=== PATIENT | female | born 1965 | race Caucasian/White ===

== ENCOUNTER 2020-05-02 07:03 | Outpatient (REF) | payer OTHER, SELFPAY ==
[2020-05-02 11:36] LABS: Estimated Average Glucose 189 mg/dL; Hemoglobin A1c % 8.2 %
[2020-05-02 11:50] LABS: Alanine Aminotransferase 23 U/L (0-31); Albumin Level 4.1 g/dL (3.5-5.0); Alkaline Phosphatase 83 U/L (39-117); Anion Gap 13 (12-20); Aspartate Amino Transferase 22 U/L (5-31); Bilirubin Total 0.9 mg/dL (0.0-1.0); Blood Urea Nitrogen 9 mg/dL (9-16); Calcium 8.4 mg/dL (8.4-10.2); Carbon Dioxide 28 mmol/L (22-29); Chloride 102 mmol/L (96-108); Estimated Glomerular Filt Rate > 60; Glucose Fasting 137 mg/dL (60-99); Potassium 4.5 mmol/l (3.3-5.1); Sodium 138 mmol/L (135-145)
[2020-05-02 11:55] LABS: Creatinine Urine 151.02 mg/dL; Microalbum/Creatinine Ratio Ur 45.6 ug/mg cr
== END 2020-05-02 07:04 | disposition home or self-care (01) ==
LOC: HO.HMGCLDS 07:03
PROVIDERS: PCP Internal Medicine; Visit Provider Internal Medicine
DX: Z00.00 Encounter for general adult medical examination without abnormal findings (principal); E11.29 Type 2 diabetes mellitus with other diabetic kidney complication; Z72.0 Tobacco use
CPT/HCPCS: 80053; 82043; 83036

== ENCOUNTER 2020-08-14 07:14 | Outpatient (REF) | payer OTHER, SELFPAY ==
[2020-08-14 11:31] LABS: Hematocrit 45.2 % (37-47); Hemoglobin 14.4 g/dl (12.0-16.0); Mean Corpuscular HGB Conc 31.9 g/dl (31.0-35.0); Mean Corpuscular Hemoglobin 29.8 pg (27.0-33.0); Mean Corpuscular Volume 93.6 fL (80-98); Mean Platelet Volume 11.1 fL (9.4-12.3); Platelet Count 193 X10*3/uL (160-400); Red Blood Count 4.83 X10*6/uL (4.20-5.50); Red Cell Distribution Width 13.2 % (11.0-16.0); White Blood Count 7.3 X10*3/uL (4.8-10.8)
[2020-08-14 11:32] LABS: Estimated Average Glucose 203 mg/dL; Hemoglobin A1c % 8.7 %
[2020-08-14 11:44] LABS: Alanine Aminotransferase 26 U/L (0-31); Alkaline Phosphatase 96 U/L (39-117); Anion Gap 13 (12-20); Aspartate Amino Transferase 27 U/L (5-31); Bilirubin Total 0.7 mg/dL (0.0-1.0); Blood Urea Nitrogen 8 mg/dL (9-16); Calcium 8.5 mg/dL (8.4-10.2); Carbon Dioxide 27 mmol/L (22-29); Chloride 103 mmol/L (96-108); Cholesterol 149 mg/dL; Estimated Glomerular Filt Rate > 60; Glucose Fasting 120 mg/dL (60-99); HDL Cholesterol 30 mg/dL; LDL Cholesterol Calculated 95 mg/dl; Potassium 4.3 mmol/l (3.3-5.1); Sodium 139 mmol/L (135-145); Triglycerides 120 mg/dL
[2020-08-14 11:59] LABS: Microalbum/Creatinine Ratio Ur 57.2 ug/mg cr
[2020-08-14 12:05] LABS: TSH reflex Free T4 1.67 mIU/mL (0.32-4.0)
== END 2020-08-14 07:15 | disposition home or self-care (01) ==
LOC: HO.HMGCLDS 07:14
PROVIDERS: PCP Internal Medicine; Visit Provider Internal Medicine
DX: E11.9 Type 2 diabetes mellitus without complications (principal); I10 Essential (primary) hypertension; E78.5 Hyperlipidemia, unspecified
CPT/HCPCS: 36415; 80053; 80061; 82043; 83036; 84443; 85027

== ENCOUNTER 2020-08-20 16:31 | Outpatient (REF) | payer OTHER, SELFPAY | END 2020-08-20 16:32 | disposition home or self-care (01) | LOC: HO.LNP 16:31 | PROVIDERS: Visit Provider Internal Medicine | DX: R30.0 Dysuria (principal) | CPT/HCPCS: 87086; 87088; 87186 ==

== ENCOUNTER 2020-11-20 06:24 | Outpatient (REF) | payer OTHER, SELFPAY ==
[2020-11-20 11:51] LABS: Hemoglobin 14.2 g/dl (12.0-16.0); Mean Corpuscular HGB Conc 31.6 g/dl (31.0-35.0); Mean Corpuscular Hemoglobin 29.8 pg (27.0-33.0); Mean Corpuscular Volume 94.3 fL (80-98); Mean Platelet Volume 11.5 fL (9.4-12.3); Platelet Count 191 X10*3/uL (160-400); Red Blood Count 4.77 X10*6/uL (4.20-5.50); Red Cell Distribution Width 13.1 % (11.0-16.0)
[2020-11-20 12:05] LABS: Alanine Aminotransferase 27 U/L (0-31); Albumin Level 4.2 g/dL (3.5-5.0); Alkaline Phosphatase 98 U/L (39-117); Anion Gap 15 (12-20); Aspartate Amino Transferase 24 U/L (5-31); Bilirubin Total 0.8 mg/dL (0.0-1.0); Blood Urea Nitrogen 8 mg/dL (9-16); Calcium 8.7 mg/dL (8.4-10.2); Carbon Dioxide 25 mmol/L (22-29); Chloride 106 mmol/L (96-108); Cholesterol 149 mg/dL; Estimated Glomerular Filt Rate > 60; Glucose Fasting 149 mg/dL (60-99); HDL Cholesterol 29 mg/dL; LDL Cholesterol Calculated 93 mg/dl; Potassium 4.4 mmol/L (3.3-5.1); Sodium 142 mmol/L (135-145); Total Protein 7.2 g/dL (6.5-8.0); Triglycerides 138 mg/dL
[2020-11-20 12:34] LABS: Creatinine Urine 108.82 mg/dL; Microalbum/Creatinine Ratio Ur 70.7 ug/mg cr
[2020-11-20 12:36] LABS: Estimated Average Glucose 223 mg/dL; Hemoglobin A1c % 9.4 %
== END 2020-11-20 06:25 | disposition home or self-care (01) ==
LOC: HO.HMGCLDS 06:24
PROVIDERS: PCP Internal Medicine; Visit Provider Internal Medicine
DX: E11.9 Type 2 diabetes mellitus without complications (principal); E78.5 Hyperlipidemia, unspecified; I10 Essential (primary) hypertension
CPT/HCPCS: 36415; 80053; 80061; 82043; 83036; 85027

== ENCOUNTER 2020-11-26 14:04 | Outpatient (REF) | payer OTHER, SELFPAY ==
[2020-11-26 14:33] LABS: Glucose Urine UA >=1000 MG/DL (NEG); Leukocyte Esterase Urine NEG (NEG); Nitrite Urine NEG (NEG); PH 6.5 (5.0-8.0); Urine Blood NEG (NEG); Urine Ketones NEG (NEG); Urine Protein NEG (NEG-TRACE)
[2020-11-26 14:38] LABS: Appearance Urine CLEAR; Color Urine YELLOW
[2020-11-26 15:01] LABS: RBC Urine 0 /HPF (0); Squamous Epithelial Cell Urine 1+ /LPF; WBC Urine 30-49 /HPF (0-4)
== END 2020-11-26 14:05 | disposition home or self-care (01) ==
LOC: HO.LNP 14:04
PROVIDERS: Visit Provider Internal Medicine
DX: E11.9 Type 2 diabetes mellitus without complications (principal); E78.5 Hyperlipidemia, unspecified; I10 Essential (primary) hypertension
CPT/HCPCS: 81001

== ENCOUNTER 2021-04-11 06:37 | Outpatient (REF) | payer OTHER, SELFPAY ==
[2021-04-11 11:58] LABS: Alanine Aminotransferase 24 U/L (0-31); Albumin Level 4.1 g/dL (3.5-5.0); Alkaline Phosphatase 96 U/L (39-117); Anion Gap 14 (12-20); Aspartate Amino Transferase 20 U/L (5-31); Blood Urea Nitrogen 9 mg/dL (9-16); Calcium 8.6 mg/dL (8.4-10.2); Carbon Dioxide 26 mmol/L (22-29); Chloride 105 mmol/L (96-108); Cholesterol 156 mg/dL; Estimated Glomerular Filt Rate > 60; Glucose Fasting 120 mg/dL (60-99); HDL Cholesterol 31 mg/dL; LDL Cholesterol Calculated 88 mg/dl; Potassium 4.5 mmol/L (3.3-5.1); Sodium 140 mmol/L (135-145); Total Protein 6.8 g/dL (6.5-8.0); Triglycerides 186 mg/dL
[2021-04-11 12:57] LABS: Creatinine Urine 158.97 mg/dL; Microalbum/Creatinine Ratio Ur 27.6 ug/mg cr
[2021-04-12 07:22] LABS: Estimated Average Glucose 180 mg/dL; Hemoglobin A1c % 7.9 %
== END 2021-04-11 06:38 | disposition home or self-care (01) ==
LOC: HO.HMGCLDS 06:37
PROVIDERS: PCP Internal Medicine; Visit Provider Internal Medicine
DX: E11.9 Type 2 diabetes mellitus without complications (principal); I10 Essential (primary) hypertension; E78.5 Hyperlipidemia, unspecified
CPT/HCPCS: 36415; 80053; 80061; 82043; 83036

== ENCOUNTER 2022-01-14 06:41 | Outpatient (REF) | payer OTHER, SELFPAY ==
[2022-01-14 11:51] LABS: Alanine Aminotransferase 23 U/L (0-31); Albumin Level 3.8 g/dL (3.5-5.0); Alkaline Phosphatase 84 U/L (39-117); Anion Gap 10 (12-20); Aspartate Amino Transferase 27 U/L (5-31); Bilirubin Total 0.8 mg/dL (0.0-1.0); Blood Urea Nitrogen 11 mg/dL (9-16); Calcium 8.6 mg/dL (8.4-10.2); Carbon Dioxide 26 mmol/L (22-29); Chloride 107 mmol/L (96-108); Cholesterol 154 mg/dL; Estimated Average Glucose 194 mg/dL; Estimated Glomerular Filt Rate > 60; Glucose Fasting 106 mg/dL (60-99); HDL Cholesterol 29 mg/dL; Hemoglobin A1c % 8.4 %; LDL Cholesterol Calculated 100 mg/dl; Potassium 4.4 mmol/L (3.3-5.1); Sodium 139 mmol/L (135-145); Total Protein 6.6 g/dL (6.5-8.0); Triglycerides 129 mg/dL
== END 2022-01-14 06:42 | disposition home or self-care (01) ==
LOC: HO.HMGCLDS 06:41
PROVIDERS: Visit Provider Internal Medicine
DX: E11.9 Type 2 diabetes mellitus without complications (principal); I10 Essential (primary) hypertension; E78.5 Hyperlipidemia, unspecified
CPT/HCPCS: 36415; 80053; 80061; 83036

== ENCOUNTER 2022-09-05 06:30 | Outpatient (REF) | payer OTHER, SELFPAY ==
[2022-09-05 11:20] LABS: Estimated Average Glucose 154 mg/dL
[2022-09-05 11:31] LABS: Alanine Aminotransferase 20 U/L (0-31); Alkaline Phosphatase 75 U/L (39-117); Anion Gap 13 (12-20); Aspartate Amino Transferase 23 U/L (5-31); Bilirubin Total 0.9 mg/dL (0.0-1.0); Blood Urea Nitrogen 9 mg/dL (9-16); Calcium 8.9 mg/dL (8.4-10.2); Carbon Dioxide 27 mmol/L (22-29); Chloride 104 mmol/L (96-108); Cholesterol 156 mg/dL; Estimated Glomerular Filt Rate > 60; Glucose Fasting 76 mg/dL (60-99); HDL Cholesterol 31 mg/dL; LDL Cholesterol Calculated 96 mg/dl; Potassium 4.5 mmol/L (3.3-5.1); Sodium 139 mmol/L (135-145); Total Protein 6.8 g/dL (6.5-8.0); Triglycerides 149 mg/dL
[2022-09-05 11:57] LABS: Creatinine Urine 139.99 mg/dL; Microalbum/Creatinine Ratio Ur 14.2 ug/mg cr
== END 2022-09-05 06:31 | disposition home or self-care (01) ==
LOC: HO.HMGCLDS 06:30
PROVIDERS: PCP Internal Medicine; Visit Provider Internal Medicine
DX: E11.9 Type 2 diabetes mellitus without complications (principal); E78.5 Hyperlipidemia, unspecified; I10 Essential (primary) hypertension
CPT/HCPCS: 36415; 80053; 80061; 82043; 83036

== ENCOUNTER 2022-12-02 06:03 | Outpatient (REF) | payer OTHER, SELFPAY ==
[2022-12-02 11:20] LABS: MANUAL DIFF FLAG NO
[2022-12-02 11:34] LABS: Basophils Percent Auto 0.3 % (0-2); Eosinophils Absolute Auto 0.1 X10*3/uL (0.0-0.4); Eosinophils Percent Auto 1.8 % (0-4); Hematocrit 42.3 % (37.0-47.0); Hemoglobin 13.6 g/dl (12.0-16.0); Imm Gran Abs Auto 0.03 X10*3/uL (0.00-0.03); Imm Gran Pct Auto 0.4 % (0.0-0.4); Lymphocytes Percent Auto 29.8 % (20-40); Mean Corpuscular HGB Conc 32.2 g/dl (31.0-35.0); Mean Corpuscular Hemoglobin 29.8 pg (27.0-33.0); Mean Corpuscular Volume 92.8 fL (80.0-98.0); Monocytes Absolute Auto 0.7 X10*3/uL (0.1-1.2); Monocytes Percent Auto 10.2 % (2-11); Neutrophils Absolute Auto 3.8 x10*3/uL (2.0-8.3); Neutrophils Percent Auto 57.5 % (45-73); Platelet Count 208 X10*3/uL (160-400); Red Blood Count 4.56 X10*6/uL (4.20-5.50); Red Cell Distribution Width 13.2 % (11.0-16.0); White Blood Count 6.7 X10*3/uL (4.8-10.8)
[2022-12-02 11:59] LABS: Estimated Average Glucose 148 mg/dL; Hemoglobin A1c % 6.8 %
[2022-12-02 12:07] LABS: Alanine Aminotransferase 22 U/L (0-31); Albumin Level 3.9 g/dL (3.5-5.0); Alkaline Phosphatase 74 U/L (39-117); Anion Gap 12 (12-20); Aspartate Amino Transferase 19 U/L (5-31); Bilirubin Total 0.9 mg/dL (0.0-1.0); Blood Urea Nitrogen 6 mg/dL (9-16); Calcium 8.8 mg/dL (8.4-10.2); Carbon Dioxide 30 mmol/L (22-29); Chloride 105 mmol/L (96-108); Cholesterol 131 mg/dL; Estimated Glomerular Filt Rate > 60; Glucose Fasting 93 mg/dL (60-99); HDL Cholesterol 30 mg/dL; LDL Cholesterol Calculated 78 mg/dl; Potassium 4.5 mmol/L (3.3-5.1); Sodium 142 mmol/L (135-145); Total Protein 6.5 g/dL (6.5-8.0); Triglycerides 117 mg/dL
== END 2022-12-02 06:04 | disposition home or self-care (01) ==
LOC: HO.HMGCLDS 06:03
PROVIDERS: PCP Internal Medicine; Visit Provider Internal Medicine
DX: E11.9 Type 2 diabetes mellitus without complications (principal); E78.5 Hyperlipidemia, unspecified; J44.9 Chronic obstructive pulmonary disease, unspecified; I10 Essential (primary) hypertension
CPT/HCPCS: 36415; 80053; 80061; 83036; 85025

== ENCOUNTER → 2022-12-17 09:29 | Outpatient (BNVA) | payer OTHER, SELFPAY | PROVIDERS: PCP Internal Medicine; Visit Provider Internal Medicine Endocrinology, Diabetes & Metabolism | DX: E11.9 Type 2 diabetes mellitus without complications (principal) | CPT/HCPCS: 82947; 99202 ==

== ENCOUNTER 2023-06-10 06:12 | Outpatient (REF) | payer OTHER, SELFPAY ==
[2023-06-10 11:12] LABS: MANUAL DIFF FLAG NO
[2023-06-10 11:17] LABS: Basophils Absolute Auto 0.1 X10*3/uL (0.0-0.2); Basophils Percent Auto 0.7 % (0-2); Eosinophils Absolute Auto 0.2 X10*3/uL (0.0-0.4); Eosinophils Percent Auto 2.4 % (0-4); Hematocrit 42.8 % (37.0-47.0); Hemoglobin 13.8 g/dl (12.0-16.0); Imm Gran Abs Auto 0.02 X10*3/uL (0.00-0.03); Imm Gran Pct Auto 0.3 % (0.0-0.4); Lymphocytes Absolute Auto 2.4 X10*3/uL (1.2-4.9); Lymphocytes Percent Auto 34.5 % (20-40); Mean Corpuscular HGB Conc 32.2 g/dl (31.0-35.0); Mean Corpuscular Hemoglobin 29.7 pg (27.0-33.0); Mean Corpuscular Volume 92.2 fL (80.0-98.0); Mean Platelet Volume 11.1 fL (9.4-12.3); Monocytes Absolute Auto 0.8 X10*3/uL (0.1-1.2); Neutrophils Absolute Auto 3.6 x10*3/uL (2.0-8.3); Neutrophils Percent Auto 51.1 % (45-73); Platelet Count 240 X10*3/uL (160-400); Red Blood Count 4.64 X10*6/uL (4.20-5.50); Red Cell Distribution Width 12.8 % (11.0-16.0)
[2023-06-10 11:23] LABS: Estimated Average Glucose 148 mg/dL; Hemoglobin A1c % 6.8 % (<6.0)
[2023-06-10 11:58] LABS: Alanine Aminotransferase 20 U/L (0-31); Alkaline Phosphatase 77 U/L (39-117); Anion Gap 12 (12-20); Aspartate Amino Transferase 19 U/L (5-31); Bilirubin Total 0.7 mg/dL (0.0-1.0); Blood Urea Nitrogen 7 mg/dL (9-16); Calcium 9.2 mg/dL (8.4-10.2); Carbon Dioxide 29 mmol/L (22-29); Chloride 106 mmol/L (96-108); Cholesterol 165 mg/dL (<200); Estimated Glomerular Filt Rate > 60; Glucose Fasting 117 mg/dL (60-99); HDL Cholesterol 30 mg/dL (>40); LDL Cholesterol Calculated 110 mg/dL (<100); Potassium 4.7 mmol/L (3.3-5.1); Sodium 142 mmol/L (135-145); Total Protein 7.2 g/dL (6.5-8.0); Triglycerides 127 mg/dL (<150)
== END 2023-06-10 06:13 | disposition home or self-care (01) ==
LOC: HO.HMGCLDS 06:12
PROVIDERS: PCP Internal Medicine; Visit Provider Internal Medicine
DX: J44.9 Chronic obstructive pulmonary disease, unspecified (principal); E78.5 Hyperlipidemia, unspecified; I10 Essential (primary) hypertension
CPT/HCPCS: 36415; 80053; 80061; 83036; 85025

== ENCOUNTER 2023-06-11 11:26 | Outpatient (AMB) | payer OTHER, SELFPAY ==
--- NOTE | 2023-06-11 11:48 | MHC.PC.OV ---
Vital Signs 06/11/23 11:49 Height 5 ft 5 in Weight 210 lb 4 oz BMI 35.0 BP 132/86 Blood Pressure Location Lt brachial Position Sitting Pulse 94 Pulse Source Pulse Oximeter Pulse Oximetry (%) 95 Oxygen Delivery Method Room Air Intake Visit Reasons: Followup diabetes Allergies empagliflozin [From Jardiance] Adverse Reaction (Intermediate, Verified 06/11/23 11:51) Abdominal Pain Medication List - Last Reconciled 06/11/23 by Capri Lombardo MD albuterol sulfate 90 mcg/actuation (Proventil HFA) 2 puffs inhalation Q6H PRN atorvastatin 40 mg PO DAILY blood-glucose meter (FreeStyle System Kit) As directed; freestyle system kit buprenorphine-naloxone 8-2 mg 3 film sublingual Q OTHER DAY PRN dulaglutide (Trulicity) 4.5 mg (0.5 mL) subcut QWEEK famotidine (Pepcid AC) 20 mg PO BEDTIME fluoxetine 20 mg PO DAILY fluoxetine mg PO FreeStyle Lite Strips (blood sugar diagnostic) test blood sugar twice a day NS gabapentin 100 mg PO TID glipizide ER 20 mg (2 x 10 mg) PO DAILY lamotrigine 25 mg PO DAILY lancets (FreeStyle Lancets) test blood sugar twice a day lisinopril 30 mg PO DAILY lorazepam 1 mg PO DAILY PRN metformin 1,000 mg PO BID umeclidinium-vilanterol 62.5-25 mcg/actuation (Anoro Ellipta) 1 ea inhalation DAILY Tobacco use date assessed: 06/11/23 Dental Screening Dental Screen Date: 06/11/23 Did you have a dental visit in the last 12 months?: No Did you have a dental problem in the last 6 months where you did not have access to dental care?: No Was dental information given to patient?: No HPI Followup diabetes HPI Details Pt presents for f/u DM 2, hyperlipid, HTN, COPD, stable on meds. PFSH Medical History Nicotine dependence, cigarettes, uncomplicated Mammogram declined Colonoscopy refused Mammogram normal Normal Pap smear COPD (chronic obstructive pulmonary disease) Dysuria Lumbar degenerative disc disease Opioid abuse Hepatitis B Hyperlipemia Diabetes HTN (hypertension) Depression Surgical History History of tubal ligation History of hysterectomy H/O colonoscopy History of carpal tunnel release Family History Father Unknown family medical history Mother Depression Anxiety HTN (hypertension) Hyperlipidemia Mental health disorder Brother No problems noted. Sister Mental health disorder Sister No problems noted. Sister No problems noted. Son No problems noted. Son No problems noted. Son No problems noted. Social History Housing: Apartment Alcohol intake: never Patient Tobacco Use Status: Current everyday Tobacco user Tobacco use type: Cigarette Cigarettes Per Day: 6 Years Smoked: 16 years old e-Cigarette/Vaping Use: Never Used Current occupational status: unemployed Cognitive needs: No Hearing needs: No Vision needs: Yes Questionnaire Thrive Questionnaire Date Thrive assessed: 11/21/21 MELLISA-7 AMB Questionnaire MELLISA-7 Date MELLISA - 7 assessed: 11/21/21 Source: Developed by Drs. Addi Britt, Ananya Heard, Madhu Reyes and colleagues, with an educational neftaly from [employer]. Review of Systems Const All systems reviewed & are unremarkable except as noted in HPI and below Reports no additional complaints Eyes Reports no additional complaints ENT Reports no additional complaints Card Reports no additional complaints Resp Reports no additional complaints GI Reports no additional complaints Reports no additional complaints Physical exam (Primary Care) Vital Signs: Last Vital Signs Pulse 94 06/11/23 11:49 BP 132/86 06/11/23 11:49 Pulse Ox 95 06/11/23 11:49 Oxygen Delivery Method Room Air 06/11/23 11:49 BMI result Body Mass Index 35.0 Tobacco/Smoking Status: Tobacco use Status Tobacco use date assessed 06/11/23 06/11/23 11:52 Patient Tobacco Use Status Current everyday Tobacco 06/11/23 11:52 Tobacco use type Cigarette 06/11/23 11:52 e-Cigarette/Vaping Use Never Used 06/11/23 11:52 Thrive Assessment: Date of Thrive Assessment Date Thrive assessed 11/21/21 06/11/23 11:52 Const General: no acute distress HENMT Throat: Yes posterior oropharynx normal Neck Neck: Yes supple Chest Chest palpation & inspection: normal inspection of the chest Resp Effort & Inspection: normal respiratory effort Auscultation: wheezes and diminished lung sounds Cardio Rhythm: regular rhythm Heart sounds: S1 normal heart sound present and S2 normal heart sound present GI Inspection: Yes normal to inspection Palpation (GI): Soft to palpation Percussion: Yes normal to percussion Auscultation: normal bowel sounds Assessment and Plan Assessment & Plan (1) Diabetes: Comment: A1C less than 7.5 Code(s): E11.9 - Type 2 diabetes mellitus without complications Plan: A1C is 6.8, ADA diet, exercise, weight loss discussed, cont med and f/u in 4 month (2) HTN (hypertension): Comment: BP less than 130/80 Code(s): I10 - Essential (primary) hypertension Plan: cont meds (3) Hyperlipemia: Code(s): E78.5 - Hyperlipidemia, unspecified Plan: cont statin (4) COPD (chronic obstructive pulmonary disease): Code(s): J44.9 - Chronic obstructive pulmonary disease, unspecified Plan: Pt has persistant wheezing, will change Anoro to Trelegy 100, f/u 4 months (5) Depression: Comment: f/u with psychiatry Code(s): F32.9 - Major depressive disorder, single episode, unspecified Orders: Orders Comprehensive [place]. Panel Fast 4 Months E11.9 - Type 2 diabetes mellitus without complications, E78.5 - Hyperlipidemia, unspecified, I10 - Essential (primary) hypertension, J44.9 - Chronic obstructive pulmonary disease, unspecified Lipid Panel 4 Months E11.9 - Type 2 diabetes mellitus without complications, E78.5 - Hyperlipidemia, unspecified, I10 - Essential (primary) hypertension, J44.9 - Chronic obstructive pulmonary disease, unspecified Complete Blood Count Auto Diff 4 Months E11.9 - Type 2 diabetes mellitus without complications, E78.5 - Hyperlipidemia, unspecified, I10 - Essential (primary) hypertension, J44.9 - Chronic obstructive pulmonary disease, unspecified Hemoglobin A1c 4 Months E11.9 - Type 2 diabetes mellitus without complications, E78.5 - Hyperlipidemia, unspecified, I10 - Essential (primary) hypertension, J44.9 - Chronic obstructive pulmonary disease, unspecified TSH reflex Free T4 4 Months E11.9 - Type 2 diabetes mellitus without complications, E78.5 - Hyperlipidemia, unspecified, I10 - Essential (primary) hypertension, J44.9 - Chronic obstructive pulmonary disease, unspecified Medications: New xbrpbqvxffy-auyhsytcf-ybbcsliv 100-62.5-25 mcg (Trelegy Ellipta) 1 inh inhalation DAILY 180 ea 3RF Coding Level of Care Code Est Pt Level 4 (96246) Diagnoses Diabetes E11.9 HTN (hypertension) I10 Hyperlipemia E78.5 COPD (chronic obstructive pulmonary disease) J44.9 Depression F32.9
[2023-06-11 11:49] VITALS: BP 132/86; PULSE 94; O2SAT 95; BMI 35.0
== END 2023-06-11 12:19 | disposition home or self-care (01) ==
PROVIDERS: PCP Internal Medicine; Visit Provider Internal Medicine
DX: E11.9 Type 2 diabetes mellitus without complications (principal); J44.9 Chronic obstructive pulmonary disease, unspecified; I10 Essential (primary) hypertension; E78.5 Hyperlipidemia, unspecified; F32.9 Major depressive disorder, single episode, unspecified; F17.210 Nicotine dependence, cigarettes, uncomplicated
CPT/HCPCS: 99214

== ENCOUNTER 2023-10-26 06:09 | Outpatient (REF) | payer OTHER, SELFPAY ==
[2023-10-26 12:46] LABS: MANUAL DIFF FLAG NO
[2023-10-26 12:52] LABS: Basophils Percent Auto 0.6 % (0-2); Eosinophils Absolute Auto 0.2 X10*3/uL (0.0-0.4); Eosinophils Percent Auto 2.5 % (0-4); Hematocrit 41.9 % (37.0-47.0); Hemoglobin 13.3 g/dl (12.0-16.0); Imm Gran Abs Auto 0.02 X10*3/uL (0.00-0.03); Imm Gran Pct Auto 0.3 % (0.0-0.4); Lymphocytes Absolute Auto 2.2 X10*3/uL (1.2-4.9); Lymphocytes Percent Auto 34.7 % (20-40); Mean Corpuscular HGB Conc 31.7 g/dl (31.0-35.0); Mean Corpuscular Hemoglobin 28.9 pg (27.0-33.0); Mean Corpuscular Volume 91.1 fL (80.0-98.0); Mean Platelet Volume 10.5 fL (9.4-12.3); Monocytes Absolute Auto 0.7 X10*3/uL (0.1-1.2); Monocytes Percent Auto 10.5 % (2-11); Neutrophils Absolute Auto 3.3 x10*3/uL (2.0-8.3); Neutrophils Percent Auto 51.4 % (45-73); Platelet Count 230 X10*3/uL (160-400); Red Cell Distribution Width 12.9 % (11.0-16.0); White Blood Count 6.5 X10*3/uL (4.8-10.8)
[2023-10-26 13:09] LABS: Estimated Average Glucose 140 mg/dL; Hemoglobin A1c % 6.5 % (<6.0)
[2023-10-26 13:14] LABS: Alanine Aminotransferase 16 U/L (0-31); Albumin Level 3.9 g/dL (3.5-5.0); Alkaline Phosphatase 67 U/L (39-117); Anion Gap 12 (12-20); Aspartate Amino Transferase 20 U/L (5-31); Bilirubin Total 0.7 mg/dL (0.0-1.0); Blood Urea Nitrogen 10 mg/dL (9-16); Carbon Dioxide 28 mmol/L (22-29); Chloride 106 mmol/L (96-108); Cholesterol 159 mg/dL (<200); Estimated Glomerular Filt Rate > 60; Glucose Fasting 116 mg/dL (60-99); HDL Cholesterol 30 mg/dL (>40); LDL Cholesterol Calculated 101 mg/dL (<100); Potassium 4.9 mmol/L (3.3-5.1); Sodium 141 mmol/L (135-145); Total Protein 6.9 g/dL (6.5-8.0); Triglycerides 144 mg/dL (<150)
[2023-10-26 13:33] LABS: TSH reflex Free T4 1.62 uIU/mL (0.32-4.0)
== END 2023-10-26 06:10 | disposition home or self-care (01) ==
LOC: HO.HMGCLDS 06:09
PROVIDERS: PCP Internal Medicine; Visit Provider Internal Medicine
DX: E11.9 Type 2 diabetes mellitus without complications (principal); I10 Essential (primary) hypertension; E78.5 Hyperlipidemia, unspecified; J44.9 Chronic obstructive pulmonary disease, unspecified
CPT/HCPCS: 36415; 80053; 80061; 83036; 84443; 85025

== ENCOUNTER 2023-11-25 12:22 | Outpatient (AMB) | payer OTHER, SELFPAY ==
[2023-11-25 12:25] VITALS: BP 132/78; PULSE 82; O2SAT 95; BMI 35.1
--- NOTE | 2023-11-25 12:25 | MHC.PC.OV ---
Vital Signs 11/25/23 12:25 Height 5 ft 5 in Weight 211 lb BMI 35.1 BP 132/78 Blood Pressure Location Lt brachial Position Sitting Pulse 82 Pulse Source Pulse Oximeter Pulse Oximetry (%) 95 Oxygen Delivery Method Room Air Intake Visit Reasons: Rescheduling October 27 appointment Intake Note: Pt is here today for a follow up visit on labs. Allergies empagliflozin [From Jardiance] Adverse Reaction (Intermediate, Verified 11/25/23 12:27) Abdominal Pain Medication List - Last Reconciled 11/25/23 by Capri Lombardo MD albuterol sulfate 90 mcg/actuation (Proventil HFA) 2 puffs inhalation Q6H PRN atorvastatin 40 mg PO DAILY blood-glucose meter (FreeStyle System Kit) As directed; freestyle system kit buprenorphine-naloxone 8-2 mg 3 film sublingual Q OTHER DAY PRN dulaglutide (Trulicity) 4.5 mg (0.5 mL) subcut QWEEK famotidine (Pepcid AC) 20 mg PO BEDTIME fluoxetine 20 mg PO DAILY fluoxetine mg PO lcjclyvkfjd-mpsjvbcyx-lzxlwhfj 100-62.5-25 mcg (Trelegy Ellipta) 1 inh inhalation DAILY FreeStyle Lite Strips (blood sugar diagnostic) test blood sugar twice a day NS gabapentin 100 mg PO TID glipizide ER 20 mg (2 x 10 mg) PO DAILY lamotrigine 25 mg PO DAILY lancets (FreeStyle Lancets) test blood sugar twice a day lisinopril 30 mg PO DAILY lorazepam 1 mg PO DAILY PRN metformin 1,000 mg PO BID umeclidinium-vilanterol 62.5-25 mcg/actuation (Anoro Ellipta) 1 ea inhalation DAILY Tobacco use date assessed: 11/25/23 Dental Screening Dental Screen Date: 11/25/23 Did you have a dental visit in the last 12 months?: No Did you have a dental problem in the last 6 months where you did not have access to dental care?: No Was dental information given to patient?: Patient declined HPI Rescheduling October 27 appointment HPI Details Patient presents for the follow-up of type 2 diabetes hypertension hyperlipidemia COPD controlled on current medications [facility] Medical History (Updated 11/25/23 @ 14:18 by Capri Lombardo MD) Nicotine dependence, cigarettes, uncomplicated Mammogram declined Colonoscopy refused Mammogram normal Normal Pap smear COPD (chronic obstructive pulmonary disease) Dysuria Lumbar degenerative disc disease Opioid abuse Hepatitis B Hyperlipemia Diabetes HTN (hypertension) Depression Surgical History History of tubal ligation History of hysterectomy H/O colonoscopy History of carpal tunnel release Family History Father Unknown family medical history Mother Depression Anxiety HTN (hypertension) Hyperlipidemia Mental health disorder Brother No problems noted. Sister Mental health disorder Sister No problems noted. Sister No problems noted. Son No problems noted. Son No problems noted. Son No problems noted. Social History Housing: Apartment Alcohol intake: never Patient Tobacco Use Status: Current everyday Tobacco user Tobacco use type: Cigarette Cigarettes Per Day: 6 Years Smoked: 16 years old e-Cigarette/Vaping Use: Never Used service: No Current occupational status: unemployed Cognitive needs: No Hearing needs: No Vision needs: Yes Questionnaire PHQ-9 Over the last 2 weeks, how often have you been bothered by any of the following problems? 1. Little interest or pleasure in doing things: more than half the days 2. Feeling down, depressed, or hopeless: several days 3. Trouble falling or staying asleep, or sleeping too much: nearly every day 4. Feeling tired or having little energy: nearly every day 5. Poor appetite or overeating: not at all 6. Feeling bad about yourself - or that you are a failure or have let yourself or your family down: several days 7. Trouble concentrating on things, such as reading the newspaper or watching television: several days 8. Moving or speaking so slowly that other people could have noticed. Or the opposite - being so fidgety or restless that you have been moving around a lot more than usual: several days 9. Thoughts that you would be better off or of hurting yourself in some way: several days Total score: 13 Depression Screening Interpretation: Positive (Patient is established with a psychiatrist and a therapist) Depression Screening Follow-up: Existing condition and In treatment Depression Screening Done: Yes Source: Developed by Drs. Addi Britt, Ananya BMadhu Diez and colleagues, with an educational neftaly from [employer]. Thrive Questionnaire Date Thrive assessed: 11/25/23 I am a: Patient What is your living situation today?: I have a steady place to live Within the past 12 months, did the food you bought not last and you didn't have the money to get more?: Sometimes True Within the past 12 months, did you worry whether your food would run out before you got money to buy more?: Sometimes True Do you have trouble paying for medicines?: No Do you have trouble getting transportation to medical appointments?: No Do you have trouble paying your heating and electricity bill?: Yes Do you have trouble taking care of your child, family member or friend?: No Do you have trouble with day-to-day activities such as bathing, preparing meals, shopping, managing finances, etc.?: Yes Are you currently unemployed and looking for a job?: No Are you interested in more education?: No THRIVE Score: 3 AUDIT C Alcohol Use Questionnaire (AUDIT-C) 1. How often do you have a drink containing alcohol?: Never 3. How often do you have six or more drinks on one occasion?: Never Total Score: 0 MELLISA-7 AMB Questionnaire MELLISA-7 Date MELLISA - 7 assessed: 11/25/23 Feeling nervous, anxious, or on edge: 2 = More than half the days Not being able to stop or control worryin = Nearly every day Worrying too much about different things: 3 = Nearly every day Trouble relaxin = Nearly every day Being so restless that it is hard to sit still: 2 = More than half the days Becoming easily annoyed or irritable: 2 = More than half the days Feeling afraid as if something awful might happen: 2 = More than half the days Total MELLISA-7 score (0-4 normal; 5-9 mild; 10-14 moderate; 15-21 severe): 17 Source: Developed by Drs. Addi Britt, Madhu Reyna and colleagues, with an educational neftaly from [employer]. Review of Systems Const All systems reviewed & are unremarkable except as noted in HPI and below Eyes Reports no additional complaints ENT Reports no additional complaints Card Reports no additional complaints Resp Reports no additional complaints GI Reports no additional complaints Reports no additional complaints Physical exam (Primary Care) Vital Signs: Last Vital Signs Pulse 82 11/25/23 12:25 BP 132/78 11/25/23 12:25 Pulse Ox 95 11/25/23 12:25 Oxygen Delivery Method Room Air 11/25/23 12:25 BMI result Body Mass Index 35.1 Tobacco/Smoking Status: Tobacco use Status Tobacco use date assessed 11/25/23 11/25/23 12:31 Patient Tobacco Use Status Current everyday Tobacco 11/25/23 12:27 Tobacco use type Cigarette 11/25/23 12:27 e-Cigarette/Vaping Use Never Used 11/25/23 12:27 PHQ-9: PHQ-9 Score PHQ-9: Total score 13 11/25/23 13:12 Depression Screening Interpretation: Positive (Patient is established with a psychiatrist and a therapist) Depression Screening Follow-up: Existing condition and In treatment Thrive Assessment: Date of Thrive Assessment Date Thrive assessed 11/25/23 11/25/23 13:12 Const General: no acute distress HENMT Face and sinus: Yes normal facial exam Eyes General: appearance normal, both eyes and all related structures Neck Neck: Yes no lymphadenopathy and Yes supple Resp Effort & Inspection: normal respiratory effort Auscultation: clear to auscultation bilaterally Cardio Rhythm: regular rhythm Heart sounds: S1 normal heart sound present and S2 normal heart sound present GI Inspection: Yes normal to inspection Palpation (GI): Soft to palpation Percussion: Yes normal to percussion Auscultation: normal bowel sounds Assessment and Plan Assessment & Plan (1) Diabetes: Comment: A1C less than 7.5 Code(s): E11.9 - Type 2 diabetes mellitus without complications Plan: A1c 6.5. cont ADA, regular exercise, weight lost, continue current medications and follow-up in 6 months (2) HTN (hypertension): Comment: BP less than 130/80 Code(s): I10 - Essential (primary) hypertension Plan: Continue current medications (3) Hyperlipemia: Code(s): E78.5 - Hyperlipidemia, unspecified Plan: Continue statin (4) COPD (chronic obstructive pulmonary disease): Code(s): J44.9 - Chronic obstructive pulmonary disease, unspecified Plan: Continue Trelegy (5) Nicotine dependence, cigarettes, uncomplicated: Comment: In lung cancer screening program, trying to quit Code(s): F17.210 - Nicotine dependence, cigarettes, uncomplicated Plan: Tobacco quitting discussed with the patient (6) Depression: Comment: f/u with psychiatry Code(s): F32.9 - Major depressive disorder, single episode, unspecified Plan: Continue current medications follow-up with Psychiatry Orders: Orders Comprehensive [place]. Panel Fast 6 Months Lipid Panel 6 Months Hemoglobin A1c 6 Months Complete Blood Count Auto Diff 6 Months Microalbumin, Random (w Creat) 6 Months Medications: Refilled dulaglutide (Trulicity) 4.5 mg (0.5 mL) subcut QWEEK 6 mL 3RF qdcndrzghlv-uefdgydli-ubjuhzzn 100-62.5-25 mcg (Trelegy Ellipta) 1 inh inhalation DAILY 180 ea 3RF Coding Level of Care Code Est Pt Level 4 (09554) Diagnoses Diabetes E11.9 HTN (hypertension) I10 Hyperlipemia E78.5 COPD (chronic obstructive pulmonary disease) J44.9 Nicotine dependence, cigarettes, uncomplicated F17.210 Depression F32.9
== END 2023-11-25 13:13 | disposition home or self-care (01) ==
PROVIDERS: PCP Internal Medicine; Visit Provider Internal Medicine
DX: E11.69 Type 2 diabetes mellitus with other specified complication (principal); J44.9 Chronic obstructive pulmonary disease, unspecified; I10 Essential (primary) hypertension; E78.5 Hyperlipidemia, unspecified; F17.210 Nicotine dependence, cigarettes, uncomplicated; F32.9 Major depressive disorder, single episode, unspecified
CPT/HCPCS: 99214

== ENCOUNTER 2024-06-13 06:24 | Outpatient (REF) | payer OTHER, SELFPAY ==
[2024-06-13 10:07] LABS: MANUAL DIFF FLAG NO
[2024-06-13 10:20] LABS: Basophils Percent Auto 0.5 % (0-2); Eosinophils Absolute Auto 0.2 X10*3/uL (0.0-0.4); Eosinophils Percent Auto 3.4 % (0-4); Hematocrit 42.1 % (37.0-47.0); Imm Gran Abs Auto 0.02 X10*3/uL (0.00-0.03); Imm Gran Pct Auto 0.4 % (0.0-0.4); Lymphocytes Absolute Auto 1.9 X10*3/uL (1.2-4.9); Lymphocytes Percent Auto 34.3 % (20-40); Mean Corpuscular HGB Conc 33.3 g/dl (31.0-35.0); Mean Corpuscular Hemoglobin 29.7 pg (27.0-33.0); Mean Corpuscular Volume 89.2 fL (80.0-98.0); Mean Platelet Volume 10.6 fL (9.4-12.3); Monocytes Absolute Auto 0.6 X10*3/uL (0.1-1.2); Monocytes Percent Auto 10.9 % (2-11); Neutrophils Absolute Auto 2.8 x10*3/uL (2.0-8.3); Neutrophils Percent Auto 50.5 % (45-73); Platelet Count 228 X10*3/uL (160-400); Red Blood Count 4.72 X10*6/uL (4.20-5.50); Red Cell Distribution Width 12.9 % (11.0-16.0); White Blood Count 5.6 X10*3/uL (4.8-10.8)
[2024-06-13 10:23] LABS: Estimated Average Glucose 163 mg/dL; Hemoglobin A1C 201.5077 umol/L; Hemoglobin A1c % 7.3 % (<6.0); Total Hemoglobin (HGBA1C) 3605.3206 umol/L
[2024-06-13 11:03] LABS: Alanine Aminotransferase 27 U/L (0-31); Albumin Level 3.9 g/dL (3.5-5.0); Alkaline Phosphatase 97 U/L (39-117); Anion Gap 8 (12-20); Aspartate Amino Transferase 30 U/L (5-31); Bilirubin Total 0.8 mg/dL (0.0-1.0); Blood Urea Nitrogen 6 mg/dL (9-16); Calcium 8.5 mg/dL (8.4-10.2); Carbon Dioxide 30 mmol/L (22-29); Chloride 106 mmol/L (96-108); Cholesterol 133 mg/dL (<200); Estimated Glomerular Filt Rate > 60; Glucose Fasting 101 mg/dL (60-99); HDL Cholesterol 26 mg/dL (>40); LDL Cholesterol Calculated 77 mg/dL (<100); Potassium 4.7 mmol/L (3.3-5.1); Sodium 139 mmol/L (135-145); Total Protein 7.1 g/dL (6.5-8.0); Triglycerides 151 mg/dL (<150)
[2024-06-13 11:37] LABS: Creatinine Urine 208.07 mg/dL; Microalbum/Creatinine Ratio Ur 33.6 ug/mg cr (<30)
== END 2024-06-13 06:25 | disposition home or self-care (01) ==
LOC: HO.HMGCLDS 06:24
PROVIDERS: PCP Internal Medicine; Visit Provider Internal Medicine
DX: Z13.89 Encounter for screening for other disorder (principal)
CPT/HCPCS: 36415; 80053; 80061; 82043; 82570; 83036; 85025

== ENCOUNTER 2024-06-15 12:21 | Outpatient (AMB) | payer OTHER, SELFPAY ==
--- NOTE | 2024-06-15 12:35 | MHC.PC.OV ---
Vital Signs 06/15/24 12:36 Height 5 ft 5 in Weight 209 lb BMI 34.8 BP 122/70 Blood Pressure Location Lt brachial Position Sitting Pulse 94 Pulse Source Pulse Oximeter Pulse Oximetry (%) 96 Oxygen Delivery Method Room Air Intake Visit Reasons: Follow up Allergies empagliflozin [From Jardiance] Adverse Reaction (Intermediate, Verified 06/15/24 12:36) Abdominal Pain Medication List - Last Reconciled 06/15/24 by Capri Lombardo MD albuterol sulfate 90 mcg/actuation (Proventil HFA) 2 puffs inhalation Q6H PRN atorvastatin 40 mg PO DAILY blood-glucose meter (FreeStyle System Kit) As directed; freestyle system kit buprenorphine-naloxone 8-2 mg 3 film sublingual Q OTHER DAY PRN dulaglutide (Trulicity) 4.5 mg (0.5 mL) subcut QWEEK famotidine (Pepcid AC) 20 mg PO BEDTIME fluoxetine 20 mg PO DAILY fluoxetine mg PO aaldiyngnkd-mhdjeurkl-pywjprry 100-62.5-25 mcg (Trelegy Ellipta) 1 inh inhalation DAILY FreeStyle Lite Strips (blood sugar diagnostic) test blood sugar twice a day NS gabapentin 100 mg PO TID glipizide ER 20 mg (2 x 10 mg) PO DAILY lamotrigine 25 mg PO DAILY lancets (FreeStyle Lancets) test blood sugar twice a day lisinopril 30 mg PO DAILY lorazepam 1 mg PO DAILY PRN metformin 1,000 mg PO BID umeclidinium-vilanterol 62.5-25 mcg/actuation (Anoro Ellipta) 1 ea inhalation DAILY Tobacco use date assessed: 06/15/24 Dental Screening Dental Screen Date: 11/25/23 HPI Follow up HPI Details Pt presents for f/u DM2, COPD, hyperlipid. Pt c/o 2 months neck pain and stiffness, worse at the end day. Patient complains of increased urinary frequency and dysuria on and off for 1 week. She denies abdominal pain nausea vomiting fever chills [facility] Medical History (Updated 06/15/24 @ 13:19 by Capri Lombardo MD) Nicotine dependence, cigarettes, uncomplicated Mammogram declined Colonoscopy refused Mammogram normal Normal Pap smear COPD (chronic obstructive pulmonary disease) Dysuria Lumbar degenerative disc disease Opioid abuse Hepatitis B Hyperlipemia Diabetes HTN (hypertension) Depression Surgical History History of tubal ligation History of hysterectomy H/O colonoscopy History of carpal tunnel release Family History Father Unknown family medical history Mother Depression Anxiety HTN (hypertension) Hyperlipidemia Mental health disorder Brother No problems noted. Sister Mental health disorder Sister No problems noted. Sister No problems noted. Son No problems noted. Son No problems noted. Son No problems noted. Social History Housing: Apartment Alcohol intake: never Patient Tobacco Use Status: Current everyday Tobacco user Tobacco use type: Cigarette Cigarettes Per Day: 6 Years Smoked: 16 years old e-Cigarette/Vaping Use: Never Used service: No Current occupational status: unemployed Cognitive needs: No Hearing needs: No Vision needs: Yes Questionnaire PHQ-9 Over the last 2 weeks, how often have you been bothered by any of the following problems? 1. Little interest or pleasure in doing things: several days 2. Feeling down, depressed, or hopeless: not at all 3. Trouble falling or staying asleep, or sleeping too much: nearly every day 4. Feeling tired or having little energy: several days 5. Poor appetite or overeating: nearly every day 6. Feeling bad about yourself - or that you are a failure or have let yourself or your family down: not at all 7. Trouble concentrating on things, such as reading the newspaper or watching television: not at all 8. Moving or speaking so slowly that other people could have noticed. Or the opposite - being so fidgety or restless that you have been moving around a lot more than usual: not at all 9. Thoughts that you would be better off or of hurting yourself in some way: not at all Total score: 8 Depression Screening Interpretation: Negative Depression Screening Done: Yes 50873 - PHQ-9 Billing: Yes Source: Developed by Drs. Addi Britt, Ananya Heard, Madhu Reyes and colleagues, with an educational neftaly from [employer]. Thrive Questionnaire Date Thrive assessed: 11/25/23 I am a: Patient What is your living situation today?: I have a steady place to live Within the past 12 months, did the food you bought not last and you didn't have the money to get more?: Never true Within the past 12 months, did you worry whether your food would run out before you got money to buy more?: Never true Do you have trouble paying for medicines?: Yes Do you have trouble getting transportation to medical appointments?: No Do you have trouble paying your heating and electricity bill?: Yes Do you have trouble taking care of your child, family member or friend?: No Do you have trouble with day-to-day activities such as bathing, preparing meals, shopping, managing finances, etc.?: Yes Are you currently unemployed and looking for a job?: No Are you interested in more education?: No Please select the resources that you would like help with: Utilities Currently or been in a relationship where the following occur: No concerns reported THRIVE Score: 1 MELLISA-7 AMB Questionnaire MELLISA-7 Date MELLISA - 7 assessed: 11/25/23 Source: Developed by Drs. Addi Britt, Ananya Heard, Madhu Reyes and colleagues, with an educational neftaly from [employer]. Review of Systems Const All systems reviewed & are unremarkable except as noted in HPI and below ENT Reports no additional complaints Card Reports no additional complaints Resp Reports no additional complaints GI Reports no additional complaints Reports no additional complaints Physical exam (Primary Care) Vital Signs: Last Vital Signs Pulse 94 06/15/24 12:36 BP 122/70 06/15/24 12:36 Pulse Ox 96 06/15/24 12:36 Oxygen Delivery Method Room Air 06/15/24 12:36 BMI result Body Mass Index 34.8 Tobacco/Smoking Status: Tobacco use Status Tobacco use date assessed 06/15/24 06/15/24 12:50 Patient Tobacco Use Status Current everyday Tobacco 06/15/24 12:35 Tobacco use type Cigarette 06/15/24 12:35 e-Cigarette/Vaping Use Never Used 06/15/24 12:35 PHQ-9: PHQ-9 Score PHQ-9: Total score 8 06/15/24 12:50 Depression Screening Interpretation: Negative Thrive Assessment: Date of Thrive Assessment Date Thrive assessed 11/25/23 06/15/24 12:35 Currently or been in a relationship where the following occur: No concerns reported Const General: no acute distress HENMT Head: Yes normal to inspection Throat: Yes posterior oropharynx normal Neck Neck: Yes supple Resp Effort & Inspection: normal respiratory effort Auscultation: clear to auscultation bilaterally Cardio Rhythm: regular rhythm Heart sounds: S1 normal heart sound present and S2 normal heart sound present GI Inspection: Yes normal to inspection Palpation (GI): Soft to palpation Percussion: Yes normal to percussion Auscultation: normal bowel sounds Back/Spine/Pelvis Other: Paraspinal tenderness and muscle spasm in lower cervical region Coding Level of Care Code Est Pt Level 4 (05666) Complex EM visit Add On G2211 Diagnoses HTN (hypertension) I10 Diabetes E11.9 COPD (chronic obstructive pulmonary disease) J44.9 Dysuria R30.0 Hyperlipemia E78.5 Additional Codes PHQ-9 - 85941 - PHQ-9 Billing: Yes ([id number]) Assessment & Plan Assessment & Plan (1) HTN (hypertension): Comment: BP less than 130/80 Code(s): I10 - Essential (primary) hypertension Category: Medical Plan: Continue current medications (2) Diabetes: Comment: A1C less than 7.5 Code(s): E11.9 - Type 2 diabetes mellitus without complications Category: Medical Plan: A1c is 7.3, ADA diet increase exercise weight loss discussed with the patient. Continue current medications follow-up in 4 months with a fasting labs before (3) COPD (chronic obstructive pulmonary disease): Code(s): J44.9 - Chronic obstructive pulmonary disease, unspecified Category: Medical Plan: Continue Anoro tobacco quitting discussed with the patient (4) Dysuria: Code(s): R30.0 - Dysuria Category: Medical Plan: Check UA and urine culture (5) Hyperlipemia: Code(s): E78.5 - Hyperlipidemia, unspecified Category: Medical Plan: Continue statin Orders: Orders UA w Microscopic Today R30.0 - Dysuria Urine Culture Today R30.0 - Dysuria Comprehensive [place]. Panel Fast 4 Months E11.9 - Type 2 diabetes mellitus without complications, E78.5 - Hyperlipidemia, unspecified, I10 - Essential (primary) hypertension, J44.9 - Chronic obstructive pulmonary disease, unspecified Hemoglobin A1c 4 Months E11.9 - Type 2 diabetes mellitus without complications, E78.5 - Hyperlipidemia, unspecified, I10 - Essential (primary) hypertension, J44.9 - Chronic obstructive pulmonary disease, unspecified Complete Blood Count Auto Diff 4 Months E11.9 - Type 2 diabetes mellitus without complications, E78.5 - Hyperlipidemia, unspecified, I10 - Essential (primary) hypertension, J44.9 - Chronic obstructive pulmonary disease, unspecified Lipid Panel 4 Months E11.9 - Type 2 diabetes mellitus without complications, E78.5 - Hyperlipidemia, unspecified, I10 - Essential (primary) hypertension, J44.9 - Chronic obstructive pulmonary disease, unspecified Microalbumin, Random (w Creat) 4 Months E11.9 - Type 2 diabetes mellitus without complications, E78.5 - Hyperlipidemia, unspecified, I10 - Essential (primary) hypertension, J44.9 - Chronic obstructive pulmonary disease, unspecified
[2024-06-15 12:36] VITALS: BP 122/70; PULSE 94; O2SAT 96; BMI 34.8
== END 2024-06-15 13:21 | disposition home or self-care (01) ==
PROVIDERS: PCP Internal Medicine; Visit Provider Internal Medicine
DX: I10 Essential (primary) hypertension (principal); E11.9 Type 2 diabetes mellitus without complications; J44.9 Chronic obstructive pulmonary disease, unspecified; R30.0 Dysuria; E78.5 Hyperlipidemia, unspecified

== ENCOUNTER 2024-06-15 12:21 | Outpatient (REF) | payer OTHER, SELFPAY ==
[2024-06-15 16:21] LABS: Appearance Urine Turbid; Color Urine Dark Yellow; Glucose Urine UA 500 mg/dL (Negative); Leukocyte Esterase Urine Small (1+) (Negative); Nitrite Urine Positive (Negative); Specific Gravity - Urine 1.025 (1.005-1.025); UMIC TRIGGER UA YES; Urine Blood Negative (Negative); Urine Ketones Trace mg/dL (Negative); Urine Protein Trace mg/dL (Neg-Trace)
[2024-06-15 16:34] LABS: Bacteria Urine 4+ (None Seen); Calcium Oxalate Crystals Urine Present; Hyaline Casts Urine 0-2 /LPF (0-2); RBC Urine 0-2 /HPF (0-2); WBC Urine >50 /HPF (0-5)
== END 2024-06-15 12:22 | disposition home or self-care (01) ==
LOC: HO.HMGCLDS 12:21
PROVIDERS: PCP Internal Medicine; Visit Provider Internal Medicine
DX: R30.0 Dysuria (principal)
CPT/HCPCS: 81001; 87086; 87088; 87186; 96127; 99212

== ENCOUNTER 2024-10-12 06:10 | Outpatient (REF) | payer OTHER, SELFPAY ==
[2024-10-12 10:10] LABS: MANUAL DIFF FLAG NO
[2024-10-12 10:22] LABS: Estimated Average Glucose 174 mg/dL; Hemoglobin A1C 211.4294 umol/L; Hemoglobin A1c % 7.7 % (<6.0); Total Hemoglobin (HGBA1C) 3497.2158 umol/L
[2024-10-12 10:24] LABS: Basophils Absolute Auto 0.1 X10*3/uL (0.0-0.2); Basophils Percent Auto 0.7 % (0-2); Eosinophils Absolute Auto 0.1 X10*3/uL (0.0-0.4); Hematocrit 41.7 % (37.0-47.0); Hemoglobin 13.4 g/dl (12.0-16.0); Imm Gran Abs Auto 0.03 X10*3/uL (0.00-0.03); Imm Gran Pct Auto 0.4 % (0.0-0.4); Lymphocytes Absolute Auto 2.2 X10*3/uL (1.2-4.9); Mean Corpuscular HGB Conc 32.1 g/dl (31.0-35.0); Mean Corpuscular Hemoglobin 28.3 pg (27.0-33.0); Mean Platelet Volume 10.5 fL (9.4-12.3); Monocytes Absolute Auto 0.7 X10*3/uL (0.1-1.2); Monocytes Percent Auto 10.3 % (2-11); Neutrophils Absolute Auto 4.1 x10*3/uL (2.0-8.3); Neutrophils Percent Auto 56.6 % (45-73); Platelet Count 240 X10*3/uL (160-400); Red Blood Count 4.74 X10*6/uL (4.20-5.50); Red Cell Distribution Width 12.9 % (11.0-16.0); White Blood Count 7.2 X10*3/uL (4.8-10.8)
[2024-10-12 10:34] LABS: Alanine Aminotransferase 18 U/L (0-31); Albumin Level 3.8 g/dL (3.5-5.0); Alkaline Phosphatase 86 U/L (39-117); Anion Gap 11 (12-20); Aspartate Amino Transferase 24 U/L (5-31); Blood Urea Nitrogen 10 mg/dL (9-16); Calcium 8.6 mg/dL (8.4-10.2); Carbon Dioxide 24 mmol/L (22-29); Chloride 105 mmol/L (96-108); Cholesterol 155 mg/dL (<200); Estimated Glomerular Filt Rate > 60; Glucose Fasting 130 mg/dL (60-99); HDL Cholesterol 31 mg/dL (>40); LDL Cholesterol Calculated 100 mg/dL (<100); Potassium 4.2 mmol/L (3.3-5.1); Sodium 136 mmol/L (135-145); Total Protein 7.3 g/dL (6.5-8.0); Triglycerides 123 mg/dL (<150)
== END 2024-10-12 06:11 | disposition home or self-care (01) ==
LOC: HO.HMGCLDS 06:10
PROVIDERS: PCP Internal Medicine; Visit Provider Internal Medicine
DX: E11.9 Type 2 diabetes mellitus without complications (principal); E78.5 Hyperlipidemia, unspecified; J44.9 Chronic obstructive pulmonary disease, unspecified; I10 Essential (primary) hypertension
CPT/HCPCS: 36415; 80053; 80061; 83036; 85025

== ENCOUNTER 2024-10-16 08:50 | Outpatient (AMB) | payer OTHER, SELFPAY ==
[2024-10-16 08:58] VITALS: BP 144/80; PULSE 92; RESP 20; TEMP 37.2; O2SAT 95; BMI 34.9
--- NOTE | 2024-10-16 08:58 | A.OFFPC_ITS ---
Vital Signs 10/16/24 08:58 Height 5 ft 5 in Weight 210 lb BMI 34.9 BP 144/80 H Blood Pressure Location Lt brachial Position Sitting Respiration 20 Pulse 92 Pulse Source Pulse Oximeter Temp 98.9 F Temp Source Oral Pulse Oximetry (%) 95 Oxygen Delivery Method Room Air Intake Visit Reasons: 4 months follow up Intake Note: Pt is here today for 4 months follow up visit. Allergies empagliflozin [From Jardiance] Adverse Reaction (Intermediate, Verified 10/16/24 08:59) Abdominal Pain Medication List - Last Reconciled 10/16/24 by Capri Lombardo MD albuterol sulfate 90 mcg/actuation (Proventil HFA) 2 puffs inhalation Q6H PRN atorvastatin 40 mg PO DAILY blood-glucose meter (FreeStyle System Kit) As directed; freestyle system kit buprenorphine-naloxone 8-2 mg 3 film sublingual Q OTHER DAY PRN dulaglutide (Trulicity) 4.5 mg (0.5 mL) subcut QWEEK famotidine (Pepcid AC) 20 mg PO BEDTIME fluoxetine 20 mg PO DAILY fluoxetine mg PO mfrdnmsyzsi-ofhkwxpjp-srqxbupq 100-62.5-25 mcg (Trelegy Ellipta) 1 inh inhalation DAILY FreeStyle Lite Strips (blood sugar diagnostic) test blood sugar twice a day NS gabapentin 100 mg PO TID glipizide ER 20 mg (2 x 10 mg) PO DAILY lamotrigine 25 mg PO DAILY lancets (FreeStyle Lancets) test blood sugar twice a day lisinopril 30 mg PO DAILY lorazepam 1 mg PO DAILY PRN metformin 1,000 mg PO BID umeclidinium-vilanterol 62.5-25 mcg/actuation (Anoro Ellipta) 1 ea inhalation DAILY Tobacco use date assessed: 10/16/24 Dental Screening Dental Screen Date: 10/16/24 Did you have a dental visit in the last 12 months?: No Did you have a dental problem in the last 6 months where you did not have access to dental care?: No Was dental information given to patient?: Patient declined HPI 4 months follow up HPI Details Pt presents for f/u HTN, DM 2, HYPERLIPIDEMIA COPD. Patient reports intermittent wheezing worse when not complying with Anoro daily. She continues to smoke 5 cigarettes a day and is not able to quit. The patient follows up with psychiatrist for chronic depression and anxiety. [facility] Medical History (Updated 10/16/24 @ 09:23 by Capri Lombardo MD) Nicotine dependence, cigarettes, uncomplicated Mammogram declined Colonoscopy refused Mammogram normal Normal Pap smear COPD (chronic obstructive pulmonary disease) Dysuria Lumbar degenerative disc disease Opioid abuse Hepatitis B Hyperlipemia Diabetes HTN (hypertension) Depression Surgical History History of tubal ligation History of hysterectomy H/O colonoscopy History of carpal tunnel release Family History Father Unknown family medical history Mother Depression Anxiety HTN (hypertension) Hyperlipidemia Mental health disorder Brother No problems noted. Sister Mental health disorder Sister No problems noted. Sister No problems noted. Son No problems noted. Son No problems noted. Son No problems noted. Social History Housing: Apartment Alcohol intake: never Patient Tobacco Use Status: Current everyday Tobacco user Tobacco use type: Cigarette Cigarettes Per Day: 6 Years Smoked: 16 years old e-Cigarette/Vaping Use: Never Used service: No Current occupational status: unemployed Cognitive needs: No Hearing needs: No Vision needs: Yes Questionnaire PHQ-9 Over the last 2 weeks, how often have you been bothered by any of the following problems? 1. Little interest or pleasure in doing things: more than half the days 2. Feeling down, depressed, or hopeless: several days 3. Trouble falling or staying asleep, or sleeping too much: nearly every day 4. Feeling tired or having little energy: nearly every day 5. Poor appetite or overeating: nearly every day 6. Feeling bad about yourself - or that you are a failure or have let yourself or your family down: more than half the days 7. Trouble concentrating on things, such as reading the newspaper or watching television: several days 8. Moving or speaking so slowly that other people could have noticed. Or the opposite - being so fidgety or restless that you have been moving around a lot more than usual: not at all 9. Thoughts that you would be better off or of hurting yourself in some way: several days Total score: 16 Depression Screening Interpretation: Positive (Patient is established with a counselor and prescriber) Depression Screening Follow-up: Existing condition and In treatment Depression Screening Done: Yes 14621 - PHQ-9 Billing: Yes Source: Developed by Drs. Addi Britt, Anayna Heard, Madhu Reyes and colleagues, with an educational neftaly from [employer]. Thrive Questionnaire Date Thrive assessed: 10/16/24 I am a: Patient What is your living situation today?: I have a steady place to live Within the past 12 months, did the food you bought not last and you didn't have the money to get more?: Sometimes True Within the past 12 months, did you worry whether your food would run out before you got money to buy more?: Sometimes True Do you have trouble paying for medicines?: No Do you have trouble getting transportation to medical appointments?: No Do you have trouble paying your heating and electricity bill?: Yes Do you have trouble taking care of your child, family member or friend?: No Do you have trouble with day-to-day activities such as bathing, preparing meals, shopping, managing finances, etc.?: Yes Are you currently unemployed and looking for a job?: Yes Are you interested in more education?: No Please select the resources that you would like help with: Utilities Currently or been in a relationship where the following occur: No concerns reported THRIVE Score: 3 AUDIT C Alcohol Use Questionnaire (AUDIT-C) 1. How often do you have a drink containing alcohol?: Never 3. How often do you have six or more drinks on one occasion?: Never Total Score: 0 MELLISA-7 AMB Questionnaire MELLISA-7 Date MELLISA - 7 assessed: 10/16/24 Feeling nervous, anxious, or on edge: 0 = Not at all Not being able to stop or control worryin = Nearly every day Worrying too much about different things: 3 = Nearly every day Trouble relaxin = More than half the days Being so restless that it is hard to sit still: 1 = Several days Becoming easily annoyed or irritable: 0 = Not at all Feeling afraid as if something awful might happen: 0 = Not at all Total MELLISA-7 score (0-4 normal; 5-9 mild; 10-14 moderate; 15-21 severe): 9 Source: Developed by Drs. Addi Britt, Ananya Heard, Madhu Reyes and colleagues, with an educational neftaly from [employer]. MELLISA-7 Assessment Billing MELLISA-7 Assessment Tool: MELLISA-7 Assessment 29042 Review of Systems Const All systems reviewed & are unremarkable except as noted in HPI and below ENT Reports no additional complaints Card Reports no additional complaints Resp Reports no additional complaints GI Reports no additional complaints Reports no additional complaints Physical exam (Primary Care) Vital Signs: Last Vital Signs Temp 98.9 F 10/16/24 08:58 Pulse 92 10/16/24 08:58 Resp 20 10/16/24 08:58 BP 144/80 H 10/16/24 08:58 Pulse Ox 95 10/16/24 08:58 Oxygen Delivery Method Room Air 10/16/24 08:58 BMI result Body Mass Index 34.9 Tobacco/Smoking Status: Tobacco use Status Tobacco use date assessed 10/16/24 10/16/24 09:00 Patient Tobacco Use Status Current everyday Tobacco 10/16/24 09:00 Tobacco use type Cigarette 10/16/24 09:00 e-Cigarette/Vaping Use Never Used 10/16/24 09:00 PHQ-9: PHQ-9 Score PHQ-9: Total score 16 10/16/24 09:00 Depression Screening Interpretation: Positive (Patient is established with a mckayla majornselor and prescriber) Depression Screening Follow-up: Existing condition and In treatment Thrive Assessment: Date of Thrive Assessment Date Thrive assessed 10/16/24 10/16/24 09:00 Currently or been in a relationship where the following occur: No concerns reported Const General: no acute distress HENMT Head: Yes normal to inspection Throat: Yes posterior oropharynx normal Neck Other: Left submandibular salivary gland slightly enlarged and tender no erythema or warmth Neck: Yes no lymphadenopathy and Yes supple Resp Effort & Inspection: normal respiratory effort Auscultation: wheezes and diminished lung sounds Cardio Rhythm: regular rhythm Heart sounds: S1 normal heart sound present and S2 normal heart sound present GI Inspection: Yes normal to inspection Palpation (GI): Soft to palpation Percussion: Yes normal to percussion Auscultation: normal bowel sounds Extrem Other: Diabetic foot exam skin is intact monofilament sensation intact bilateral General: Yes no clubbing, cyanosis or edema Coding Level of Care Code Est Pt Level 5 (59190) Complex EM visit Add On G2211 Diagnoses Submandibular gland swelling R60.0 COPD (chronic obstructive pulmonary disease) J44.9 HTN (hypertension) I10 Diabetes E11.9 Additional Codes MELLISA-7 Assessment Billing - MELLISA-7 Assessment Tool: MELLISA-7 Assessment 81561 ([id number]) PHQ-9 - 57541 - PHQ-9 Billing: Yes ([id number]) Assessment & Plan Assessment & Plan (1) Submandibular gland swelling: Code(s): R60.0 - Localized edema Category: Medical Plan: Obtain neck soft tissue ultrasound (2) COPD (chronic obstructive pulmonary disease): Code(s): J44.9 - Chronic obstructive pulmonary disease, unspecified Category: Medical Plan: Change Anoro to Trelegy and tobacco quitting discussed with the patient (3) HTN (hypertension): Comment: BP less than 130/80 Code(s): I10 - Essential (primary) hypertension Category: Medical Plan: Increase lisinopril to 40 mg (4) Diabetes: Comment: A1C less than 7.5 Code(s): E11.9 - Type 2 diabetes mellitus without complications Category: Medical Plan: A1c is 7.7, ADA diet increase exercise weight loss discussed with the patient. Continue metformin glipizide change Trulicity to Mounjaro 10 mg weekly Orders: Orders US soft tiss head and/or neck Today R60.0 - Localized edema Medications: New Mounjaro (tirzepatide) 10 mg (0.5 mL) subcut QWEEK 6 mL 2RF NS lisinopril 40 mg PO DAILY 90 tabs 3RF Refilled gabapentin 100 mg PO TID 90 caps 1RF rmofrgebmgq-bpiicidjy-zzgpydec 100-62.5-25 mcg (Trelegy Ellipta) 1 inh inhalation DAILY 180 ea 3RF Discontinued umeclidinium-vilanterol 62.5-25 mcg/actuation (Anoro Ellipta) Discontinued Reason: Doctor's Order 1 ea inhalation DAILY 180 ea 3RF J44.9 - Chronic obstructive pulmonary disease, unspecified dulaglutide (Trulicity) Discontinued Reason: Doctor's Order 4.5 mg (0.5 mL) subcut QWEEK 6 mL 3RF lisinopril Discontinued Reason: Doctor's Order 30 mg PO DAILY 90 tabs 3RF
== END 2024-10-16 09:43 | disposition home or self-care (01) ==
LOC: HO.HMCC 08:51
PROVIDERS: PCP Internal Medicine; Visit Provider Internal Medicine
DX: E11.9 Type 2 diabetes mellitus without complications (principal); J44.9 Chronic obstructive pulmonary disease, unspecified; R60.0 Localized edema; I10 Essential (primary) hypertension

== ENCOUNTER → 2024-10-16 08:50 | Outpatient (BNVA) | payer OTHER, SELFPAY | PROVIDERS: PCP Internal Medicine; Visit Provider Internal Medicine | DX: R60.0 Localized edema (principal); J44.9 Chronic obstructive pulmonary disease, unspecified; I10 Essential (primary) hypertension; E11.9 Type 2 diabetes mellitus without complications | CPT/HCPCS: 96127; 99212 ==

== ENCOUNTER 2024-10-30 14:51 | Outpatient (REF) | payer OTHER, SELFPAY ==
--- NOTE | ~2024-10-30 | US_ITS ---
EXAMINATION: US HEAD NECK SOFT TISSUE HISTORY: R60.0 - Localized edema COMPARISON: There are no prior studies for comparison. FINDINGS: Sonographic examination of the area of pain and swelling in the left neck was performed. No mass or fluid collection is seen. US/US soft tiss head and/or neck IMPRESSION: No sonographic abnormality is seen in the region of the left neck pain and swelling. Electronically signed by: Addi Wallace MD 10/30/2024 03:39 PM EDT
== END 2024-10-30 14:52 | disposition home or self-care (01) ==
LOC: HO.HMGCX 14:51
PROVIDERS: PCP Internal Medicine; Visit Provider Internal Medicine
DX: R60.0 Localized edema (principal)
CPT/HCPCS: 76536

== ENCOUNTER → 2024-10-30 14:59 | Outpatient (BNV) | payer OTHER, SELFPAY | PROVIDERS: PCP Internal Medicine; Visit Provider Radiology Diagnostic Radiology | DX: R60.0 Localized edema (principal) | CPT/HCPCS: 76536 ==

== ENCOUNTER 2025-01-29 07:02 | Outpatient (REF) | payer OTHER, SELFPAY ==
[2025-01-29 11:07] LABS: Hemoglobin A1C 170.1005 umol/L; Total Hemoglobin (HGBA1C) 3573.9189 umol/L
[2025-01-29 11:40] LABS: Alanine Aminotransferase 16 U/L (0-31); Albumin Level 4.0 g/dL (3.5-5.0); Alkaline Phosphatase 75 U/L (39-117); Anion Gap 11 (12-20); Aspartate Amino Transferase 27 U/L (5-31); Blood Urea Nitrogen 8 mg/dL (9-16); Calcium 8.8 mg/dL (8.4-10.2); Carbon Dioxide 28 mmol/L (22-29); Chloride 106 mmol/L (96-108); Cholesterol 202 mg/dL (<200); Estimated Glomerular Filt Rate > 60; HDL Cholesterol 30 mg/dL (>40); Potassium 4.5 mmol/L (3.3-5.1); Sodium 140 mmol/L (135-145); Total Protein 6.9 g/dL (6.5-8.0); Triglycerides 148 mg/dL (<150)
== END 2025-01-29 07:03 | disposition home or self-care (01) ==
LOC: HO.HMGCLDS 07:02
PROVIDERS: PCP Internal Medicine; Visit Provider Internal Medicine
DX: E11.9 Type 2 diabetes mellitus without complications (principal); I10 Essential (primary) hypertension; E78.5 Hyperlipidemia, unspecified; F32.9 Major depressive disorder, single episode, unspecified; Z79.84 Long term (current) use of oral hypoglycemic drugs; Z79.899 Other long term (current) drug therapy
CPT/HCPCS: 36415; 80053; 80061; 83036; 99212

== ENCOUNTER 2025-01-29 09:06 | Outpatient (AMB) | payer OTHER, SELFPAY ==
[2025-01-29 09:20] VITALS: BP 134/86; PULSE 94; RESP 20; TEMP 36.9; O2SAT 94; BMI 33.6
--- NOTE | 2025-01-29 09:20 | MHC.PC.OV ---
Vital Signs 01/29/25 09:20 Height 5 ft 5 in Weight 202 lb BMI 33.6 BP 134/86 Blood Pressure Location Lt brachial Position Sitting Respiration 20 Pulse 94 Pulse Source Pulse Oximeter Temp 98.5 F Temp Source Oral Pulse Oximetry (%) 94 Oxygen Delivery Method Room Air Intake Visit Reasons: REASON FOR VISIT 3 months f/up, resched Allergies empagliflozin (From [employer]) Adverse Reaction (Intermediate, Verified 01/29/25 09:22) Abdominal Pain Medication List - Last Reconciled 01/29/25 by Capri Lombardo MD albuterol sulfate 90 mcg/actuation (Proventil HFA) 2 puffs inhalation Q6H PRN atorvastatin 40 mg PO DAILY blood-glucose meter (FreeStyle System Kit) As directed; freestyle system kit buprenorphine-naloxone 8-2 mg 3 film sublingual Q OTHER DAY PRN famotidine (Pepcid AC) 20 mg PO BEDTIME fluoxetine 20 mg PO DAILY fluoxetine mg PO [id number]-dqpcahcls-[id number] 100-62.5-25 mcg (Trelegy Ellipta) 1 inh inhalation DAILY FreeStyle Lite Strips (blood sugar diagnostic) test blood sugar twice a day NS gabapentin 100 mg PO TID glipizide ER 20 mg (2 x 10 mg) PO DAILY lamotrigine 25 mg PO DAILY lancets (FreeStyle Lancets) test blood sugar twice a day lisinopril 40 mg PO DAILY lorazepam 1 mg PO DAILY PRN metformin 1,000 mg PO BID Ozempic (semaglutide) 2 mg (0.75 mL) subcut QWEEK NS Tobacco use date assessed: 01/29/25 Dental Screening Dental Screen Date: 01/29/25 Did you have a dental visit in the last 12 months?: No Did you have a dental problem in the last 6 months where you did not have access to dental care?: No Was dental information given to patient?: Patient declined HPI REASON FOR VISIT 3 months f/up, resched HPI Details Patient presents for the follow-up of type 2 diabetes hyperlipidemia chronic anxiety and depression hypertension COPD. Patient used Ozempic for 2 months but has not been using it for the last 2 weeks because she left 1 month supply in the car for few days. Patient reports fluctuating blood glucose between 50 to over 200. She has been eating a lot of carbohydrates and skipping meals because she does not feel hungry. [facility] Medical History Nicotine dependence, cigarettes, uncomplicated Mammogram declined Colonoscopy refused Mammogram normal Normal Pap smear COPD (chronic obstructive pulmonary disease) Dysuria Lumbar degenerative disc disease Opioid abuse Hepatitis B Hyperlipemia Diabetes HTN (hypertension) Depression Surgical History History of tubal ligation History of hysterectomy H/O colonoscopy History of carpal tunnel release Family History Father Unknown family medical history Mother Depression Anxiety HTN (hypertension) Hyperlipidemia Mental health disorder Brother No problems noted. Sister Mental health disorder Sister No problems noted. Sister No problems noted. Son No problems noted. Son No problems noted. Son No problems noted. Social History Housing: Apartment Alcohol intake: never Patient Tobacco Use Status: Current everyday Tobacco user Tobacco use type: Cigarette Cigarettes Per Day: 6 Years Smoked: 16 years old e-Cigarette/Vaping Use: Never Used service: No Current occupational status: unemployed Cognitive needs: No Hearing needs: No Vision needs: Yes Questionnaire Thrive Questionnaire Date Thrive assessed: 10/16/24 I am a: Patient What is your living situation today?: I have a steady place to live Within the past 12 months, did the food you bought not last and you didn't have the money to get more?: Sometimes True Within the past 12 months, did you worry whether your food would run out before you got money to buy more?: Sometimes True Do you have trouble paying for medicines?: No Do you have trouble getting transportation to medical appointments?: No Do you have trouble paying your heating and electricity bill?: Yes Do you have trouble taking care of your child, family member or friend?: No Do you have trouble with day-to-day activities such as bathing, preparing meals, shopping, managing finances, etc.?: Yes Are you currently unemployed and looking for a job?: Yes Are you interested in more education?: No Please select the resources that you would like help with: Utilities Currently or been in a relationship where the following occur: No concerns reported THRIVE Score: 3 MELLISA-7 AMB Questionnaire MELLISA-7 Date MELLISA - 7 assessed: 10/16/24 Source: Developed by Drs. Addi Britt, Ananya Heard, Madhu Reyes and colleagues, with an educational neftaly from [employer]. Review of Systems Const All systems reviewed & are unremarkable except as noted in HPI and below ENT Reports no additional complaints Card Reports no additional complaints Resp Reports no additional complaints GI Reports no additional complaints Reports no additional complaints Physical exam (Primary Care) Vital Signs: Last Vital Signs Temp 98.5 F 01/29/25 09:20 Pulse 94 01/29/25 09:20 Resp 20 01/29/25 09:20 BP 134/86 01/29/25 09:20 Pulse Ox 94 01/29/25 09:20 Oxygen Delivery Method Room Air 01/29/25 09:20 BMI result Body Mass Index 33.6 Tobacco/Smoking Status: Tobacco use Status Tobacco use date assessed 01/29/25 01/29/25 09:22 Patient Tobacco Use Status Current everyday Tobacco 01/29/25 09:20 Tobacco use type Cigarette 01/29/25 09:20 e-Cigarette/Vaping Use Never Used 01/29/25 09:20 Thrive Assessment: Date of Thrive Assessment Date Thrive assessed 10/16/24 01/29/25 09:20 Currently or been in a relationship where the following occur: No concerns reported Const General: no acute distress HENMT Throat: Yes posterior oropharynx normal Neck Neck: Yes supple Resp Effort & Inspection: normal respiratory effort Auscultation: clear to auscultation bilaterally Cardio Rhythm: regular rhythm Heart sounds: S1 normal heart sound present and S2 normal heart sound present GI Palpation (GI): Soft to palpation Coding Level of Care Code Est Pt Level 4 (98015) Complex EM visit Add On G2211 Diagnoses Depression F32.9 HTN (hypertension) I10 Hyperlipemia E78.5 Diabetes E11.9 Assessment & Plan Assessment & Plan (1) Depression: Comment: f/u with psychiatry Code(s): F32.9 - Major depressive disorder, single episode, unspecified Category: Medical Plan: Continue current medications follow-up with psychiatry (2) HTN (hypertension): Comment: BP less than 130/80 Code(s): I10 - Essential (primary) hypertension Category: Medical Plan: Continue current medications (3) Hyperlipemia: Code(s): E78.5 - Hyperlipidemia, unspecified Category: Medical Plan: Continue statin (4) Diabetes: Comment: A1C less than 7.5 Code(s): E11.9 - Type 2 diabetes mellitus without complications Category: Medical Plan: Patient had a blood work this morning A1c is still pending. ADA diet, eating small frequent meals , increase physical activity discussed with the patient. She was advised to decrease glipizide to 10 mg a day to avoid hypoglycemia. Patient will restart Ozempic and continue metformin. Patient was advised to monitor and record fasting blood glucose readings for the next month. Follow-up in 1 month Medications: Changed From glipizide ER 20 mg (2 x 10 mg) PO DAILY 180 tabs 1RF To glipizide ER 10 mg PO DAILY 90 tabs 1RF Refilled Ozempic (semaglutide) 2 mg (0.75 mL) subcut QWEEK 9 mL 3RF NS
== END 2025-01-29 09:55 | disposition home or self-care (01) ==
LOC: HO.HMCC 09:07
PROVIDERS: PCP Internal Medicine; Visit Provider Internal Medicine
DX: F32.9 Major depressive disorder, single episode, unspecified (principal); I10 Essential (primary) hypertension; E78.5 Hyperlipidemia, unspecified; E11.9 Type 2 diabetes mellitus without complications

== ENCOUNTER 2025-04-16 06:25 | Outpatient (REF) | payer OTHER, SELFPAY ==
[2025-04-16 10:41] LABS: Hemoglobin A1C 176.5212 umol/L; Total Hemoglobin (HGBA1C) 3559.6968 umol/L
[2025-04-16 11:12] LABS: Alanine Aminotransferase 16 U/L (0-31); Albumin Level 4.1 g/dL (3.5-5.0); Alkaline Phosphatase 78 U/L (39-117); Anion Gap 12 (12-20); Aspartate Amino Transferase 23 U/L (5-31); Blood Urea Nitrogen 6 mg/dL (9-16); Calcium 9.0 mg/dL (8.4-10.2); Carbon Dioxide 27 mmol/L (22-29); Chloride 106 mmol/L (96-108); Cholesterol 176 mg/dL (<200); Estimated Glomerular Filt Rate > 60; HDL Cholesterol 30 mg/dL (>40); Potassium 4.5 mmol/L (3.3-5.1); Sodium 140 mmol/L (135-145); Total Protein 7.1 g/dL (6.5-8.0)
[2025-04-16 11:36] LABS: Triglycerides 180 mg/dL (<150)
== END 2025-04-16 06:26 | disposition home or self-care (01) ==
LOC: HO.HMGCLDS 06:25
PROVIDERS: PCP Internal Medicine; Visit Provider Internal Medicine
DX: E11.9 Type 2 diabetes mellitus without complications (principal)
CPT/HCPCS: 36415; 80053; 80061; 83036

== ENCOUNTER 2025-04-18 13:06 | Outpatient (AMB) | payer OTHER, SELFPAY ==
--- NOTE | 2025-04-18 13:41 | MHC.PC.OV ---
Vital Signs 04/18/25 13:43 Height 5 ft 5 in Weight 200 lb BMI 33.3 BP 124/72 Blood Pressure Location Lt brachial Position Sitting Respiration 19 Pulse 83 Pulse Source Pulse Oximeter Temp 98.3 F Temp Source Oral Pulse Oximetry (%) 96 Oxygen Delivery Method Room Air Intake Visit Reasons: Annual PE Intake Note: Pt is here today for PE. Allergies empagliflozin (From [employer]) Adverse Reaction (Intermediate, Verified 04/18/25 13:44) Abdominal Pain Medication List - Last Reconciled 04/18/25 by Capri Lombardo MD albuterol sulfate 90 mcg/actuation (Proventil HFA) 2 puffs inhalation Q6H PRN atorvastatin 40 mg PO DAILY blood-glucose meter (FreeStyle System Kit) As directed; freestyle system kit buprenorphine-naloxone 8-2 mg 3 film sublingual Q OTHER DAY PRN famotidine (Pepcid AC) 20 mg PO BEDTIME fluoxetine 20 mg PO DAILY fluoxetine mg PO [id number]-pgcmtlitd-jtqmcghi 100-62.5-25 mcg (Trelegy Ellipta) 1 inh inhalation DAILY FreeStyle Lite Strips (blood sugar diagnostic) test blood sugar twice a day NS gabapentin 100 mg PO TID glipizide ER 10 mg PO DAILY lamotrigine 25 mg PO DAILY lancets (FreeStyle Lancets) test blood sugar twice a day lisinopril 40 mg PO DAILY lorazepam 1 mg PO DAILY PRN metformin 1,000 mg PO BID Tobacco use date assessed: 04/18/25 Dental Screening Dental Screen Date: 01/29/25 HPI Annual PE HPI Details Patient presents for physical. Patient reports fluctuating blood glucose readings between 140-180 fasting in the morning. She has not been compliant with ADA diet. She stopped Ozempic 3 weeks ago because her insurance stopped covering it. COPD stable on Trelegy but patient continues to smoke 6 cigarettes a day. [facility] Medical History (Updated 04/18/25 @ 15:18 by Capri Lombardo MD) Nicotine dependence, cigarettes, uncomplicated Mammogram declined Colonoscopy refused Mammogram normal Normal Pap smear COPD (chronic obstructive pulmonary disease) Dysuria Lumbar degenerative disc disease Opioid abuse Hepatitis B Hyperlipemia Diabetes HTN (hypertension) Depression Surgical History History of tubal ligation History of hysterectomy H/O colonoscopy History of carpal tunnel release Family History Father Unknown family medical history Mother Depression Anxiety HTN (hypertension) Hyperlipidemia Mental health disorder Brother No problems noted. Sister Mental health disorder Sister No problems noted. Sister No problems noted. Son No problems noted. Son No problems noted. Son No problems noted. Social History Housing: Apartment Alcohol intake: never Patient Tobacco Use Status: Current everyday Tobacco user Tobacco use type: Cigarette Cigarettes Per Day: 6 Years Smoked: 16 years old e-Cigarette/Vaping Use: Never Used service: No Current occupational status: unemployed Cognitive needs: No Hearing needs: No Vision needs: Yes Questionnaire PHQ-9 Over the last 2 weeks, how often have you been bothered by any of the following problems? 1. Little interest or pleasure in doing things: more than half the days 2. Feeling down, depressed, or hopeless: several days 3. Trouble falling or staying asleep, or sleeping too much: nearly every day 4. Feeling tired or having little energy: nearly every day 5. Poor appetite or overeating: nearly every day 6. Feeling bad about yourself - or that you are a failure or have let yourself or your family down: more than half the days 7. Trouble concentrating on things, such as reading the newspaper or watching television: several days 8. Moving or speaking so slowly that other people could have noticed. Or the opposite - being so fidgety or restless that you have been moving around a lot more than usual: not at all 9. Thoughts that you would be better off or of hurting yourself in some way: several days Total score: 16 Depression Screening Interpretation: Positive (Patient is established with a counselor and prescriber) Depression Screening Follow-up: Existing condition and In treatment Depression Screening Done: Yes Source: Developed by Drs. Addi Britt, Ananya Heard, Madhu Reyes and colleagues, with an educational neftaly from [email or web address]. Thrive Questionnaire Date Thrive assessed: 10/14/24 I am a: Patient What is your living situation today?: I have a steady place to live Within the past 12 months, did the food you bought not last and you didn't have the money to get more?: Sometimes True Within the past 12 months, did you worry whether your food would run out before you got money to buy more?: Sometimes True Do you have trouble paying for medicines?: No Do you have trouble getting transportation to medical appointments?: No Do you have trouble paying your heating and electricity bill?: Yes Do you have trouble taking care of your child, family member or friend?: No Do you have trouble with day-to-day activities such as bathing, preparing meals, shopping, managing finances, etc.?: Yes Are you currently unemployed and looking for a job?: Yes Are you interested in more education?: No Please select the resources that you would like help with: Utilities Currently or been in a relationship where the following occur: No concerns reported THRIVE Score: 3 MELLISA-7 AMB Questionnaire MELLISA-7 Date MELLISA - 7 assessed: 10/16/24 Feeling nervous, anxious, or on edge: 0 = Not at all Not being able to stop or control worryin = Not at all Worrying too much about different things: 0 = Not at all Trouble relaxin = Not at all Being so restless that it is hard to sit still: 0 = Not at all Becoming easily annoyed or irritable: 0 = Not at all Feeling afraid as if something awful might happen: 0 = Not at all Total MELLISA-7 score (0-4 normal; 5-9 mild; 10-14 moderate; 15-21 severe): 0 Source: Developed by Drs. Addi Britt, Ananya Heard, Madhu Reyes and colleagues, with an educational neftaly from [email or web address]. Review of Systems Const All systems reviewed & are unremarkable except as noted in HPI and below Eyes Reports no additional complaints ENT Reports no additional complaints Card Reports no additional complaints Resp Reports no additional complaints GI Reports no additional complaints Reports no additional complaints Physical exam (Primary Care) Vital Signs: Last Vital Signs Temp 98.3 F 04/18/25 13:43 Pulse 83 04/18/25 13:43 Resp 19 04/18/25 13:43 BP 124/72 04/18/25 13:43 Pulse Ox 96 04/18/25 13:43 Oxygen Delivery Method Room Air 04/18/25 13:43 BMI result Body Mass Index 33.3 Tobacco/Smoking Status: Tobacco use Status Tobacco use date assessed 04/18/25 04/18/25 13:48 Patient Tobacco Use Status Current everyday Tobacco 04/18/25 13:42 Tobacco use type Cigarette 04/18/25 13:42 e-Cigarette/Vaping Use Never Used 04/18/25 13:42 PHQ-9: PHQ-9 Score PHQ-9: Total score 16 04/18/25 14:54 Depression Screening Interpretation: Positive (Patient is established with a counselor and prescriber) Depression Screening Follow-up: Existing condition and In treatment Thrive Assessment: Date of Thrive Assessment Date Thrive assessed 10/14/24 04/18/25 13:42 Currently or been in a relationship where the following occur: No concerns reported Const General: no acute distress HENMT Head: Yes normal to inspection Mouth: Normal oral and palatal mucosa present Eyes General: appearance normal, both eyes and all related structures Neck Neck: Yes no lymphadenopathy and Yes supple Resp Effort & Inspection: normal respiratory effort Auscultation: clear to auscultation bilaterally Cardio Rhythm: regular rhythm Heart sounds: S1 normal heart sound present and S2 normal heart sound present GI Inspection: Yes normal to inspection Palpation (GI): Soft to palpation Percussion: Yes normal to percussion Auscultation: normal bowel sounds Extrem Other: Diabetic foot exam skin is intact monofilament and vibration sensation intact bilaterally General: Yes no clubbing, cyanosis or edema Coding Level of Care Code Est Pt Prev Care 40-64y(61243) Diagnoses Urinary incontinence R32 Diabetes E11.9 Mammogram declined Z53.20 Depression F32.9 HTN (hypertension) I10 COPD (chronic obstructive pulmonary disease) J44.9 Nicotine dependence, cigarettes, uncomplicated F17.210 Assessment & Plan Assessment & Plan (1) Urinary incontinence: Code(s): R32 - Unspecified urinary incontinence Category: Medical Plan: Patient will be referred to Urogynecology at [place] (2) Diabetes: Comment: A1C less than 7.5 Code(s): E11.9 - Type 2 diabetes mellitus without complications Category: Medical Plan: A1c is 6.7, ADA diet increase physical activity discussed with the patient . she will continue metformin glipizide and will check with her insurance coverage for GLP 1 agonist. Follow-up in 3 months (3) Mammogram declined: Comment: 11/14, 03/2025 Code(s): Z53.20 - Procedure and treatment not carried out because of patient's decision for unspecified reasons Category: Medical Plan: Patient declined mammogram (4) Depression: Comment: f/u with psychiatry Code(s): F32.9 - Major depressive disorder, single episode, unspecified Category: Medical Plan: Continue current medications follow-up psychiatry (5) HTN (hypertension): Comment: BP less than 130/80 Code(s): I10 - Essential (primary) hypertension Category: Medical Plan: Continue current medications (6) COPD (chronic obstructive pulmonary disease): Code(s): J44.9 - Chronic obstructive pulmonary disease, unspecified Category: Medical Plan: Continue Trelegy (7) Nicotine dependence, cigarettes, uncomplicated: Comment: 5 cig a day, for 30 yrs, not a candidate for lung cancer screening program Code(s): F17.210 - Nicotine dependence, cigarettes, uncomplicated Category: Medical Plan: Tobacco quitting discussed with the patient Orders: Orders Hemoglobin A1c 3 Months E11.9 - Type 2 diabetes mellitus without complications Microalbumin, Random (w Creat) 3 Months E11.9 - Type 2 diabetes mellitus without complications Comprehensive [place]. Panel Fast 3 Months E11.9 - Type 2 diabetes mellitus without complications Lipid Panel 3 Months E11.9 - Type 2 diabetes mellitus without complications Referrals Urogynecology Referral E11.9 - Type 2 diabetes mellitus without complications, R32 - Unspecified urinary incontinence Cologuard Test E11.9 - Type 2 diabetes mellitus without complications, Z12.11 - Encounter for screening for malignant neoplasm of colon, Z12.12 - Encounter for screening for malignant neoplasm of rectum Medications: Refilled metformin schedule next PCP appt for more refills 1,000 mg PO BID 180 tabs 3RF
[2025-04-18 13:43] VITALS: BP 124/72; PULSE 83; RESP 19; TEMP 36.8; O2SAT 96; BMI 33.3
== END 2025-04-18 14:31 | disposition home or self-care (01) ==
LOC: HO.HMCC 13:07
PROVIDERS: PCP Internal Medicine; Visit Provider Internal Medicine
DX: Z00.00 Encounter for general adult medical examination without abnormal findings (principal); J44.9 Chronic obstructive pulmonary disease, unspecified; E11.9 Type 2 diabetes mellitus without complications; R32 Unspecified urinary incontinence; Z53.20 Procedure and treatment not carried out because of patient's decision for unspecified reasons; F32.9 Major depressive disorder, single episode, unspecified; I10 Essential (primary) hypertension; F17.210 Nicotine dependence, cigarettes, uncomplicated

== ENCOUNTER → 2025-04-18 13:06 | Outpatient (BNVA) | payer OTHER, SELFPAY | PROVIDERS: PCP Internal Medicine; Visit Provider Internal Medicine | DX: Z00.01 Encounter for general adult medical examination with abnormal findings (principal); R32 Unspecified urinary incontinence; E11.9 Type 2 diabetes mellitus without complications; F32.9 Major depressive disorder, single episode, unspecified; I10 Essential (primary) hypertension; J44.9 Chronic obstructive pulmonary disease, unspecified; F17.210 Nicotine dependence, cigarettes, uncomplicated; Z79.84 Long term (current) use of oral hypoglycemic drugs; Z13.31 Encounter for screening for depression | CPT/HCPCS: 99396 ==